=== PATIENT | female | born 1960 | race Caucasian/White ===

== ENCOUNTER 2020-06-08 22:08 | Emergency (ER) | payer OTHER ==
[~2020-06-08] VITALS: Ht 154.9 cm; Wt 85.3 kg
[~2020-06-08 22:08] MED LIST: NOHOMEMEDICATIONS
[2020-06-08] MEDS ORDERED: KEFLEX500 M1 PO (22:18)
[2020-06-08] MEDS ORDERED: BUSPAR30 MG PO (22:19)
[2020-06-08] MEDS ORDERED: LAMOTRIGINE250 MG PO (22:20)
[2020-06-08] MEDS ORDERED: LEXAPRO20 MG PO (22:20)
[2020-06-08] MEDS ORDERED: LORAZEPAM 1 MG T1 MG PO (22:21)
[2020-06-09 00:24] VITALS: BP 113/62
--- NOTE | 2020-06-11 12:52 | EKG ---
[place] [address] ELECTROCARDIOGRAM REPORT Name: GUME LANDRUMISE JOSELYN [id number] Admission: 06/08/20 Attend Phys: Discharge: 06/09/20 Date of : 62 Date of Service: 06/08/202212 Report #: [id number] THIS REPORT FOR: //name// 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
== END 2020-06-09 00:25 | disposition home or self-care (01) ==
LOC: M.ERS 22:08
DX: T18.128A Food in esophagus causing other injury, initial encounter (principal); Z79.899 Other long term (current) drug therapy; Z88.5 Allergy status to narcotic agent; Z20.828 Contact with and (suspected) exposure to other viral communicable diseases; X58.XXXA Exposure to other specified factors, initial encounter; Y93.89 Activity, other specified; Y92.89 Other specified places as the place of occurrence of the external cause; Y99.8 Other external cause status

== ENCOUNTER 2021-04-02 16:09 | Emergency (ER) | payer OTHER, BC ==
[~2021-04-02] VITALS: Ht 154.9 cm; Wt 90.3 kg
[~2021-04-02 16:09] MED LIST changes: +BUSPAR30 MG PO; +KEFLEX500 M1 PO; +LAMOTRIGINE250 MG PO; +LEXAPRO20 MG PO; +LORAZEPAM 1 MG T1 MG PO
[2021-04-02] MEDS ORDERED: MEDROLDOSEPACK PO (17:14)
[2021-04-02] MEDS ORDERED: FLEXERIL PO (17:14)
[2021-04-02 17:25] VITALS: BP 124/68
== END 2021-04-02 17:25 | disposition home or self-care (01) ==
LOC: M.ERS 16:09
DX: S16.1XXA Strain of muscle, fascia and tendon at neck level, initial encounter (principal); Z98.51 Tubal ligation status; Z90.49 Acquired absence of other specified parts of digestive tract; Z79.899 Other long term (current) drug therapy; Z88.5 Allergy status to narcotic agent; V87.7XXA Person injured in collision between other specified motor vehicles (traffic), initial encounter; Y93.89 Activity, other specified; Y92.89 Other specified places as the place of occurrence of the external cause; Y99.8 Other external cause status